=== PATIENT | female | born 2000 | race Caucasian/White ===

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

== ENCOUNTER 2022-10-16 15:18 | Emergency (ER) | payer BC, SELFPAY ==
[2022-10-16 15:19] VITALS: BP 153/85; PULSE 60; RESP 18; TEMP 36.8; O2SAT 97; BMI 36.8
--- NOTE | 2022-10-16 15:36 | EXP.UTC ---
Discharge Plan Disposition Patient Disposition: Home, Self-Care Condition: Good Prescriptions Prescriptions: New amoxicillin [amoxicillin] 875 mg tablet 875 mg PO Q12H Qty: 20 0RF methylprednisolone 4 mg Tablets,Dose Pack 4 mg PO DIRECTED Qty: 21 0RF tlmquyazuyvclvo-jahjpjsxo-FL [Bromfed DM] 2-30-10 mg/5 mL Syrup 5 ml PO Q6H PRN (Reason: Cough) Qty: 240 0RF No Action norethindrone-e.estradiol-iron [Taytulla] 1 mg-20 mcg (24)/75 mg (4) capsule 1 cap PO DAILY Qty: 84 4RF methocarbamol 500 MG tablet 500 mg PO BID PRN (Reason: Muscle Spasm) Qty: 10 0RF ibuprofen 600 MG tablet 600 mg PO Q6HP PRN (Reason: Moderate Pain) Qty: 20 0RF montelukast 5 MG tablet,chewable 5 mg PO DAILY minocycline 100 MG capsule 100 mg PO DAILY levothyroxine 125 MCG tablet 125 mcg PO DAILY norethindrone-e.estradiol-iron 1 EACH capsule 1 each PO DAILY azithromycin 250 MG tablet 250 mg PO DIRECTED Qty: 6 0RF Rx Instructions: Take two (2) tablets on day #1, then one (1) tablet day #2 thru #5 fluticasone propionate 120 SPR/BOT bottle 1 spr NS DAILY 14 Days Qty: 1 0RF Referrals Follow up/Referrals: Vadim Campos MD [Primary Care Provider] - See instructions Activity Restrictions/Add. Instructions Additional Instructions/Restrictions: Drink plenty of fluids. Take tylenol or ibuprofen for pain or fever. Take the medications as directed. Follow up with your regular doctor. GO TO THE ER FOR ANY WORSENING SYMPTOMS Clinical Impressions Clinical Impression: Otitis media Instructions Patient Instructions: Middle Ear Infection Discharge ED Provider: Ed Clayton [facility] [place] General Stated complaint: RT ear pain Mode of Arrival: Ambulatory Source of Information: Patient Limitations: No Limitations Time Seen by Provider: 10/16/22 15:36 Description of Symptoms (Recalled from Triage Doc. by RN): Patient reports right and left ear ache for a couple of days now. HEENT Symptoms (Recalled from RN notes): Yes Resp Symptoms (Recalled from RN notes): No Skin Symptoms (Recalled from RN notes): No MS Symptoms (Recalled from RN notes): No Functional Status (Recalled from RN notes): wnl History of Present Illness Provider Complaint: She states that she has had bilateral ear pain for the past 2 days. Related Data Home Medications Medication Instructions Recorded Confirmed minocycline 100 mg capsule 100 mg PO DAILY ACNE 08/21/17 03/21/19 montelukast 5 mg chewable tablet 5 mg PO DAILY ALLERGIES 08/21/17 03/21/19 levothyroxine 125 mcg tablet 125 mcg PO DAILY THYROIDECTOMY 03/21/19 03/21/19 norethindrone 1 mg-ethin. 1 each PO DAILY control 03/21/19 03/21/19 estradiol 20 mcg (24)-iron 75 mg (4) capsule Previous Rx's Medication Instructions Recorded azithromycin 250 mg tablet 250 mg PO DIRECTED #6 tabs 03/21/19 fluticasone propionate 50 1 spr NS DAILY 14 days ##1 03/21/19 mcg/actuation nasal spray,suspension Taytulla 1 mg-20 mcg (24)/75 mg 1 cap PO DAILY #84 caps 11/01/20 (4) capsule (norethindrone-e.estradiol-iron) ibuprofen 600 mg tablet 600 mg PO Q6HP PRN Moderate Pain 12/01/20 #20 tabs methocarbamol 500 mg tablet 500 mg PO BID PRN Muscle Spasm #10 12/01/20 tabs amoxicillin 875 mg tablet 875 mg PO Q12H #20 tabs 10/16/22 btgcxwqeouehwsu-bnpsvwysknxawoj-ZJ 5 ml PO Q6H PRN Cough #240 mL 10/16/22 2 mg-30 mg-10 mg/5 mL oral syrup (Bromfed DM) methylprednisolone 4 mg tablets in 4 mg PO DIRECTED #21 tabs 10/16/22 a dose pack Allergies Allergy/AdvReac Type Severity Reaction Status Date / Time No Known Allergies Allergy Verified 01/06/19 15:19 Worker's Comp Is this a Worker's Comp case?: No [facility] Disclaimer: The information contained in this section may have been updated after the patient was seen, as this information can be updated by other users. Social History (Reviewed 10/17/22 @ 09:58 by Vadim Wells
[2022-10-16 16:25] VITALS: BP 153/85; PULSE 60; RESP 18; TEMP 36.8; O2SAT 97
== END 2022-10-16 16:26 | disposition home or self-care (01) ==
PROVIDERS: Emergency Provider Nurse Practitioner Family; PCP Family Medicine
DX: H66.93 Otitis media, unspecified, bilateral (principal)
CPT/HCPCS: 99212; 99214; G0463

== ENCOUNTER 2023-12-18 10:59 | Outpatient (CLI) | payer BC, SELFPAY ==
[2023-12-18 12:03] LABS: Free T4 (Free Thyroxine) 1.38 ng/dl (0.78-2.19)
[2023-12-18 12:17] LABS: Thyroid Stimulating Hormone 0.25 uIU/mL (0.465-4.68)
== END 2023-12-18 23:59 | disposition home or self-care (01) ==
LOC: LAB 11:00
PROVIDERS: PCP Nurse Practitioner; Visit Provider Internal Medicine Endocrinology, Diabetes & Metabolism
DX: E89.0 Postprocedural hypothyroidism (principal)
CPT/HCPCS: 36415; 84439; 84443

== ENCOUNTER 2024-07-29 11:56 | Outpatient (CLI) | payer BC, SELFPAY ==
[2024-07-29 12:03] VITALS: BMI 34.3
--- NOTE | 2024-07-29 12:08 | PC.NURSE ---
[id number].morgan garza collected labs via venipuncture stick in left arm with butterfly needle;pt to d/c home
[2024-07-29 12:53] LABS: Free T4 (Free Thyroxine) 1.21 ng/dl (0.78-2.19)
== END 2024-07-29 12:10 | disposition home or self-care (01) ==
LOC: LAB 11:57 → INF 12:15
PROVIDERS: PCP Nurse Practitioner; Visit Provider Internal Medicine Endocrinology, Diabetes & Metabolism
DX: E89.0 Postprocedural hypothyroidism (principal)
CPT/HCPCS: 36415; 84439; 84443

== ENCOUNTER 2024-10-08 09:10 | Outpatient (CLI) | payer BC, SELFPAY ==
[2024-10-08 10:40] LABS: Free T4 (Free Thyroxine) 1.21 ng/dl (0.78-2.19)
[2024-10-08 10:55] LABS: Thyroid Stimulating Hormone 1.16 uIU/mL (0.465-4.68)
== END 2024-10-08 23:59 | disposition home or self-care (01) ==
LOC: LAB 09:11
PROVIDERS: PCP Nurse Practitioner; Visit Provider Internal Medicine Endocrinology, Diabetes & Metabolism
DX: E89.0 Postprocedural hypothyroidism (principal)
CPT/HCPCS: 36415; 84439; 84443